=== PATIENT | male | born 1990 | race African-American/Black ===

== ENCOUNTER 2024-02-29 14:04 | Emergency (ER) | payer SELFPAY ==
[~2024-02-29] VITALS: Ht 190.5 cm; Wt 81.6 kg
[2024-02-29 14:19] VITALS: O2SAT 98
[2024-02-29] MEDS ORDERED: CYCL5TAB PO (15:14)
[2024-02-29] MEDS ORDERED: HYDR-3980 PO ×2 (15:14→15:42)
== END 2024-02-29 15:21 | disposition home or self-care (01) ==
LOC: ER 14:04
DX: M54.2 Cervicalgia (principal); Z76.0 Encounter for issue of repeat prescription; Z79.899 Other long term (current) drug therapy; Z88.6 Allergy status to analgesic agent
CPT/HCPCS: A4606; A4663